=== PATIENT | female | born 1950 | race Caucasian/White ===

== ENCOUNTER 2019-03-24 16:35 | Emergency (ER) | payer OTHER ==
[2019-03-24] MEDS ORDERED: Sodium Chloride 0.9% 1,000 ML IV ONE (17:32)
--- NOTE | 2019-03-24 17:38 | ED Physician Chart ---
ED Chief Complaint/HPI - Patient Information Date Seen:: 03/24/19 Time Seen:: 17:20 Chief Complaint:: Diarrhea History of Present Illness:: Patient started having diarrhea 3 hours ago; 3 times total. No vomiting. Has very mild lower abdominal pain. Allergies:: Allergies Allergy/AdvReac Type Severity Reaction Status Date / Time No Known Allergies Allergy Verified 03/24/19 16:42 Vitals:: Vital Signs - 8 hr 03/24/19 16:42 Temp 98.3 F HR 101 RR 18 BP 124/66 O2 Sat % 97 Historian:: Patient, Family Member Review:: Nurse's Note Reviewed ED Review of Systems - Review of Systems General/Constitutional: No fever, No chills Skin: No skin lesions Head: No headache Eyes: No loss of vision ENT: No earache Neck: No neck pain, No swelling Pulmonary: No SOB GI: Diarrhea, Pain G/U: No dysuria Musculoskeletal: No bone or joint pain Psychiatric: No prior psych history Hematopoietic: No bruising Allergic/Immuno: No urticaria Neurological: No syncope ED Past Medical History - Past Medical History Past Medical History: Other (sometimes gets confused) Family History: Heart disease Social History: Non Smoker, No Alcohol Surgical History: Cholecystectomy Psychiatricy History: None Medication: Reviewed ED Physical Exam - Physical Examination General/Constitutional: Awake, Well-developed, well-nourished, No distress Head: Atraumatic Eyes: Lids, conjuctiva normal, PERRL Skin: Nl inspection, No rash, No skin lesions, No ecchymosis ENMT: External ears, nose nl, TM canals nl, Nasal exam nl, Lips, teeth, gums nl , Oropharynx nl, Tonsils nl Neck: No nuchal rigidity Respiratory: Nl effort/Exclusion, Clear to Auscultation, No Wheeze/Rhonchi/Rales Cardio Vascular: RRR, No murmur, gallop, rubs GI: No organomegaly, No hernia, Normal BS's Other GI comments:: Mild lower abdominal tenderness Extremities: No edema Neuro/Psych: No focal deficits Misc: No paraspinal tenderness ED Labs/Radiology/EKG Results - Lab Results Results: Laboratory Results WBC 9.7 Th/cmm (4.8-10.8) 03/24/19 17:35 RBC 4.21 Mil/cmm (3.80-5.20) 03/24/19 17:35 Hgb 13.3 gm/dL (12-16) 03/24/19 17:35 Hct 38.3 % (41.0-60) L 03/24/19 17:35 MCV 90.9 fl (81-100) 03/24/19 17:35 MCH 31.5 pg (27.0-31.0) H 03/24/19 17:35 MCHC Differential 34.6 pg (28.0-36.0) 03/24/19 17:35 RDW 12.0 % (11.5-20.0) 03/24/19 17:35 Plt Count 285 Th/cmm (150-400) 03/24/19 17:35 MPV 7.4 fl 03/24/19 17:35 Neutrophils % 74.4 % (40.0-80.0) 03/24/19 17:35 Lymphocytes % 17.6 % (20.0-50.0) L 03/24/19 17:35 Monocytes % 7.0 % (2.0-10.0) 03/24/19 17:35 Eosinophils % 0.1 % (0.0-5.0) 03/24/19 17:35 Basophils % 0.9 % (0.0-2.0) 03/24/19 17:35 Sodium 136 mEq/L (136-145) 03/24/19 17:35 Potassium 4.0 mEq/L (3.5-5.1) 03/24/19 17:35 Chloride 104 mEq/L (98-107) 03/24/19 17:35 Carbon Dioxide 23.6 mEq/L (21.0-31.0) 03/24/19 17:35 Anion Gap 12.4 (7.0-16.0) 03/24/19 17:35 BUN 12 mg/dL (7-25) 03/24/19 17:35 Creatinine 0.7 mg/dL (0.6-1.2) 03/24/19 17:35 Est GFR ( Amer) > 60.0 ml/min (>90) 03/24/19 17:35 Est GFR (Non-Af Amer) > 60.0 ml/min 03/24/19 17:35 BUN/Creatinine Ratio 17.1 03/24/19 17:35 Glucose 101 mg/dL (70-105) 03/24/19 17:35 Calcium 8.9 mg/dL (8.6-10.3) 03/24/19 17:35 Magnesium 2.1 mg/dL (1.9-2.7) 03/24/19 17:35 Lipase 9 U/L (11-82) L 03/24/19 17:35 Laboratory Results WBC 9.7 Th/cmm (4.8-10.8) 03/24/19 17:35 RBC 4.21 Mil/cmm (3.80-5.20) 03/24/19 17:35 Hgb 13.3 gm/dL (12-16) 03/24/19 17:35 Hct 38.3 % (41.0-60) L 03/24/19 17:35 MCV 90.9 fl (81-100) 03/24/19 17:35 MCH 31.5 pg (27.0-31.0) H 03/24/19 17:35 MCHC Differential 34.6 pg (28.0-36.0) 03/24/19 17:35 RDW 12.0 % (11.5-20.0) 03/24/19 17:35 Plt Count 285 Th/cmm (150-400) 03/24/19 17:35 MPV 7.4 fl 03/24/19 17:35 Neutrophils % 74.4 % (40.0-80.0) 03/24/19 17:35 Lymphocytes % 17.6 % (20.0-50.0) L 03/24/19 17:35 Monocytes % 7.0 % (2.0-10.0) 03/24/19 17:35 Eosinophils % 0.1 % (0.0-5.0) 03/24/19 17:35 Basophils % 0.9 % (0.0-2.0) 03/24/19 17:35 Sodium 136 mEq/L (136-145) 03/24/19 17:35 Potassium 4.0 mEq/L (3.5-5.1) 03/24/19 17:35 Chloride 104 mEq/L (98-107) 03/24/19 17:35 Carbon Dioxide 23.6 mEq/L (21.0-31.0) 03/24/19 17:35 Anion Gap 12.4 (7.0-16.0) 03/24/19 17:35 BUN 12 mg/dL (7-25) 03/24/19 17:35 Creatinine 0.7 mg/dL (0.6-1.2) 03/24/19 17:35 Est GFR ( Amer) > 60.0 ml/min (>90) 03/24/19 17:35 Est GFR (Non-Af Amer) > 60.0 ml/min 03/24/19 17:35 BUN/Creatinine Ratio 17.1 03/24/19 17:35 Glucose 101 mg/dL (70-105) 03/24/19 17:35 Calcium 8.9 mg/dL (8.6-10.3) 03/24/19 17:35 Magnesium 2.1 mg/dL (1.9-2.7) 03/24/19 17:35 Lipase 9 U/L (11-82) L 03/24/19 17:35 ED Assessment - Assessment General Assessment: Labs are normal. Patient was able ambulated normally in the emergency department. Encouraged family to have the patient drink lots a half Gatorade half water and supplement diet with extra bananas for the potassium they contain. ED Septic Shock - <6hrs of presentation: Vital Signs: Vital Signs - 8 hr 03/24/19 16:42 Temp 98.3 F HR 101 RR 18 BP 124/66 O2 Sat % 97 ED Reassessment (Disposition) - Reassessment Reassessment Condition:: Improved - Diagnosis Diagnosis:: viral enteritis with diarrhea - Aftercare/Follow up Instructions Aftercare/Follow-Up Instructions:: Refer to Discharge Instructions - Patient Disposition Discharge/Transfer:: Home Condition at Disposition:: Stable, Improved
[2019-03-24 17:46] LABS: MONOCYTE ABSOLUTE 0.7 Th/cmm (0.3-1.0); WHITE BLOOD COUNT 9.7 Th/cmm (4.8-10.8)
[2019-03-24 17:50] LABS: % BASOPHILS 0.9 % (0.0-2.0); % EOSINOPHILS 0.1 % (0.0-5.0); % LYMPHOCYTES 17.6 % (20.0-50.0); % NEUTROPHILS 74.4 % (40.0-80.0); BASOPHILE ABSOLUTE 0.1 Th/cumm (0-0.2); HEMATOCRIT 38.3 % (41.0-60); HEMOGLOBIN 13.3 gm/dL (12-16); LYMPHOCYTE ABSOLUTE 1.7 Th/cmm (1.5-3.0); MEAN CELL VOLUME 90.9 fl (81-100); MEAN CORPUSCULAR HEMOGLOBIN 31.5 pg (27.0-31.0); MEAN CORPUSCULAR HGB CONC 34.6 pg (28.0-36.0); NEUTROPHILE ABSOLUTE 7.2 Th/cmm (1.8-8.0); PLATELET COUNT 285 Th/cmm (150-400); RED BLOOD COUNT 4.21 Mil/cmm (3.80-5.20)
[2019-03-24 18:01] LABS: ANION GAP 12.4 (7.0-16.0); BUN - UREA NITROGEN 12 mg/dL (7-25); CALCIUM SERUM 8.9 mg/dL (8.6-10.3); CARBON DIOXIDE 23.6 mEq/L (21.0-31.0); CHLORIDE 104 mEq/L (98-107); CREATININE - SERUM 0.7 mg/dL (0.6-1.2); GFR AFRICAN-AMERICAN > 60.0 ml/min (>90); GFR NON AFRICAN-AMERICAN > 60.0 ml/min; GLUCOSE 101 mg/dL (70-105); MAGNESIUM 2.1 mg/dL (1.9-2.7); SODIUM SERUM 136 mEq/L (136-145)
[2019-03-24 18:54] LABS: URINE SOURCE RANDOM
[2019-03-24 18:55] LABS: URINE BILIRUBIN NEGATIVE (NEGATIVE); URINE BLOOD TRACE (NEGATIVE); URINE GLUCOSE (UA) NEGATIVE (NEGATIVE); URINE KETONE NEGATIVE (NEGATIVE); URINE LEUKOCYTE ESTERASE NEGATIVE (NEGATIVE); URINE MICROSCOPIC INDICATED? YES; URINE NITRATE NEGATIVE (NEGATIVE); URINE PROTEIN NEGATIVE (NEGATIVE); URINE UROBILINOGEN 0.2 E.U./dL (0.2 - 1.0)
[2019-03-24 19:07] LABS: URINE CLARITY BLOODY (CLEAR); URINE COLOR YELLOW
[2019-03-24 19:08] LABS: URINE BACTERIA FEW /hpf (NONE SEEN); URINE EPITHELIAL CELLS FEW /lpf (FEW); URINE WBC 0-2 /hpf (0-5)
== END 2019-03-24 19:24 | disposition home or self-care (01) ==
LOC: ER 16:35
DX: A08.4 Viral intestinal infection, unspecified (principal); Z90.49 Acquired absence of other specified parts of digestive tract
CPT/HCPCS: 36415-UA; 80048-TC; 81001-TC; 83690-TC; 83735-TC; 85025-TC; J7030; Z7502